=== PATIENT | female | born 1960 | race Caucasian/White ===

== ENCOUNTER → 2018-01-27 | Day surgery (SDC) | payer MEDICARE ==
[2018-01-24 10:50] LABS: BASOPHILS # (AUTO) 0.1 (0.0-0.1); BASOPHILS % 0.9 % (0.0-1.0); EOSINOPHILS # (AUTO) 0.6 (0.0-0.4); EOSINOPHILS % 5.7 % (0.0-6.0); HEMATOCRIT 39.4 % (34.2-44.1); HEMOGLOBIN 12.6 g/dL (12.0-16.0); LYMPHOCYTES # (AUTO) 3.7 (1.0-3.2); LYMPHOCYTES % 33.4 % (18.0-39.1); MEAN CORPUSCULAR VOLUME 84.5 fL (81-99); MONOCYTES # (AUTO) 0.8 (0.2-0.8); MONOCYTES % 7.4 % (4.4-11.3); NEUTROPHILS # (AUTO) 5.8 (2.1-6.9); NEUTROPHILS % 52.2 % (38.7-80.0); PLATELET COUNT 272 x10e3/uL (140-360); RED BLOOD COUNT 4.66 x10e6/uL (3.6-5.1); RED CELL DISTRIBUTION WIDTH 13.5 % (11.7-14.4)
[2018-01-24 11:07] LABS: ANION GAP 16.3 mmol/L (8-16); CALCIUM 9.5 mg/dL (8.4-10.2); CREATININE, SERUM 1.23 mg/dL (0.57-1.11); POTASSIUM 4.3 mmol/L (3.5-5.1)
--- NOTE | 2018-01-24 12:43 | Diagnostic Imaging Report ---
Frontal and lateral views of the chest. HISTORY: PRE ADMIT, skin cancer surgery COMPARISON: None available. DISCUSSION: Lungs: Low lung volumes result in bibasilar vascular crowding, accentuation of the pulmonary interstitial markings, central pulmonary vasculature, and the cardiac silhouette. Allowing for these limitations, the findings are as follows: No evidence of a consolidative pneumonia or pulmonary alveolar edema. Pleura: No pleural effusion or pneumothorax. Heart and mediastinum: The cardiomediastinal silhouette appears unremarkable. Bones: No acute osseous lesion. IMPRESSION: No acute radiographic abnormality, when allowing for the phase of respiration/lung volumes. Signed by: Dr. Dante Henriquez D.O., M.M.M. on 01/24/2018 12:40 PM
[~2018-01-27] MED LIST: ASPIR 8181 MG PO; BUPIVACAINE HCL 0.5% INJ 30 ML VIAL INJ ONE; CLINDAMYCIN 600MG / 50ML 0 ML IV ONE; CLINDAMYCIN 600MG / 50ML 50 ML IV ONE; FENTANYL CITRATE/PF 100MCG/2 ML INJ ONE; HYDRALAZINE HCL 20 MG/ML VIAL ONE; INSULIN 70/30 SC; INSULIN REGULAR, HUMAN 100 UNIT/1 ML 3ML VIAL ONE; LIDOCAINE 1% W/EPINEPHRINE 20 ML VIAL ONE; LIDOCAINE HCL 1% LOCAL INJ 20 ML VIAL ONE; LIPITOR20 MG PO; LISINOPRIL10 MG PO; METFORMIN HCL500 MG PO; METOPROLOL TART50 MG PO; MIDAZOLAM HCL 2 MG/2 ML VIAL ONE; MUPIROCIN 2% OINT 22 GM TUBE ONE; ONDANSETRON HCL INJ 2 MG/ML VIAL ONE; PLAVIX75 MG PO; PROPRANOLOL HCL80 MG PO
--- OUTSIDE RECORDS SUMMARY | 2018-01-27 06:29 | XMS REPORT | Summary of Care ---
Author Author [facility] Organization [facility] Address Unknown Phone Unavailable Encounter HQ Encntr_alias(FIN) [id number] Date(s): 12/05/16 - 12/05/16 [facility] [address] [place] [address]- Discharge Disposition: Home or Self Care Attending Physician: Bassem England MD Referring Physician: Bassem England MD Vital Signs No data available for this section Problem List No data available for this section Allergies, Adverse Reactions, Alerts No data available for this section Medications No data available for this section Results No data available for this section Immunizations No data available for this section Procedures No data available for this section Social History No data available for this section Assessment and Plan No data available for this section
--- OUTSIDE RECORDS SUMMARY | 2018-01-27 06:29 | XMS REPORT | Continuity of Care Document ---
Author Author [place] [facility] Interface Address Unknown Phone Unavailable Problems Problem Status Onset Date Classification Date Reported Comments Source DX: R11.0=NAUSEA Active 10/21/2016 [facility] NAUSEA Active [facility] Medications Medication Details Route Status Patient Instructions Ordering Provider Order Date Source Allergies, Adverse Reactions, Alerts Substance Category Reaction Severity Reaction type Status Date Reported Comments Source Immunizations Immunization Date Given Site Status Last Updated Comments Source Results Order Name Results Value Reference Range Date Interpretation Comments Source Abdomen complete US Abdomen complete US Clinical Indication: - nausea; Comparison: None TECHNIQUE: Grayscale and limited color sonographic evaluation of the abdomen was performed with standard technique. FINDINGS: LIVER: The visualized liver shows normal contour, size, and morphology with normal parenchymal echo texture. BILE DUCTS: The intrahepatic ducts are not dilated. The common bile duct measures 9 mm. The distal common bile duct is not well seen. GALLBLADDER: There are no gallstones, gallbladder sludge, pericholecystic fluid or wall thickening. PANCREAS: The increased is obscured by bowel gas. SPLEEN: The spleen is unremarkable and measures 11.1 cm. KIDNEY: The right kidney measures 9.4 x 6.2 x 6.5 cm. The left kidney measures 12.4 x 6.8 x 6 cm. There is normal renal contour and morphology, with normal parenchymal echotexture. There is no hydronephrosis. AORTA AND INFERIOR VENA CAVA: Visualized portions appear unremarkable. ASCITES: There is no right abdominal ascites. IMPRESSION: 1. Common bile duct is dilated up to 9 mm proximally. The distal common bile duct is not well seen. If there is clinical concern for biliary obstruction, further evaluation with MRCP may be performed. 2. No sonographic evidence of cholelithiasis or cholecystitis. SL: [id number] 12/05/2016 - - Read by: Thao Danielle MD Dictated Date/time: 12/05/16 11:01 Electronically Signed by: Thao Danielle MD 12/05/16 11:03 FINAL REPORT [facility] Vital Signs Vital Sign Value Date Comments Source Encounters Location Location Details Encounter Type Encounter Number Reason For Visit Attending Provider ADM Date DC Date Status Source [facility] Outpatient [id number] Bassem England 12/05/2016 12/06/2016 [facility] Procedures Procedure Code Date Perfomer Comments Source
--- OUTSIDE RECORDS SUMMARY | 2018-01-27 06:29 | XMS REPORT | Clinical Summary ---
Author Author [facility] Organization [facility] Address Unknown Phone Unavailable Care Team Providers Care Icing Maker Name Role Phone Marsha Lopez MD PCP Unavailable Allergies Comments Active Allergy Reactions Severity Noted Date Hydromorphone 08/23/2017 Morphine 08/23/2017 Penicillins 08/23/2017 Hydrocodone-Acetaminophen 08/23/2017 Medications End Date Status Medication Sig Dispensed Refills Start Date 09/22/2017 acetaminophen (TYLENOL Take 2 100 tablet 0 EXTRA STRENGTH) 500 MG tablets 8 tablet (1,000 mg total) by mouth every 6 (six) hours as needed for mild pain or moderate pain for up to 30 days. 09/22/2017 cyclobenzaprine Take 1 tablet 20 tablet 0 (FLEXERIL) 10 mg tablet (10 mg total) 8 by mouth 2 (two) times a day as needed for muscle spasms for up to 30 days. 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 Last Filed Vital Signs Time Taken Vital Sign Reading 08/23/2017 3:31 PM CDT Blood Pressure 131/76 08/23/2017 3:31 PM CDT Pulse 81 08/23/2017 3:31 PM CDT Temperature 36 C (96.8 F) 08/23/2017 3:31 PM CDT Respiratory Rate 16 08/23/2017 3:31 PM CDT Oxygen Saturation 98% - Inhaled Oxygen - Concentration 08/23/2017 1:16 PM CDT Weight 136 kg (300 lb) 08/23/2017 1:16 PM CDT Height 165.1 cm (5' 5") 08/23/2017 1:16 PM CDT Body Mass Index 49.92 Plan of Treatment Health Maintenance Due Date Last Done Comments DIABETIC RETINAL EYE EXAM 1960 DIABETIC FOOT EXAM 1972 URINE MICROALBUMIN 1972 CERVICAL CANCER SCREENING 11/25/1983 BREAST CANCER SCREENING 2012 COLON CANCER SCREENING 2012 SHINGLES VACCINES (1 of 2012 2) INFLUENZA VACCINE 09/08/2017 Procedures Comments Procedure Name Priority Date/Time Associated Diagnosis XR ELBOW 3+ VW LEFT STAT 08/23/2017 2:53 PM CDT XR WRIST 3+ VW LEFT STAT 08/23/2017 2:52 PM CDT XR SHOULDER 2+ VW LEFT STAT 08/23/2017 2:52 PM CDT after 01/26/2017 Results * XR Elbow 3+ Vw Left (08/23/2017 2:53 PM CDT) Narrative Performed At EXAMINATION:XR ELBOW 3VW LEFT [facility] CLINICAL HISTORY:Elbow paininitial exam COMPARISON:None. IMPRESSION: No osseous abnormality is noted. There is no significant elbow joint effusion. [id number] Procedure Note Hm Interface, Radiology Results Incoming - 08/23/2017 3:02 PM CDT EXAMINATION: XR ELBOW 3 VW LEFT CLINICAL HISTORY: Elbow pain initial exam COMPARISON: None. IMPRESSION: No osseous abnormality is noted. There is no significant elbow joint effusion. [id number] Performing Organization Address City/State/Zipcode Phone Number [facility] [address] [place] [address] * XR Wrist 3+ Vw Left (08/23/2017 2:52 PM CDT) Narrative Performed At EXAMINATION:XR WRIST 3VW LEFT [facility] CLINICAL HISTORY:Wrist paininitial exam COMPARISON:None. IMPRESSION: No acute abnormality is noted. There are some degenerative changes in the first carpal-metacarpal joint. [id number] Procedure Note Interface, Radiology Results Incoming - 08/23/2017 3:02 PM CDT EXAMINATION: XR WRIST 3 VW LEFT CLINICAL HISTORY: Wrist pain initial exam COMPARISON: None. IMPRESSION: No acute abnormality is noted. There are some degenerative changes in the first carpal-metacarpal joint. [id number] Performing Organization Address City/State/Zipcode Phone Number [facility] [address] [place] [address] * XR Shoulder 2+ Vw Left (08/23/2017 2:52 PM CDT) Narrative Performed At PROCEDURE:XR SHOULDER 2VW LEFT [facility] CLINICAL HISTORY:paindenies injury COMPARISON:None. TECHNIQUE: 3 views of the LEFT shoulder were performed consisting of the external rotation, internal rotation, and scapular Y view. FINDINGS: No fracture, dislocation, bone destruction, or periosteal reaction is seen of the bones about the shoulder. The coracoclavicular ligaments are intact. No gross abnormalityglenohumeral joint is seen grossly. Large and heterogeneous calcifications projecting over the greater trochanter consistent with calcific tendinosis of rotator cuff. IMPRESSION: 1. Large and heterogeneous calcifications projecting over the greater trochanter consistent with calcific tendinosis of rotator cuff, findings likely explain the patient's symptoms. 2. Osteoarthritis of the acromio-clavicular joint. 3. Negative for fracture or dislocation to left shoulder. [id number] . Procedure Note Interface, Radiology Results Incoming - 08/23/2017 3:01 PM CDT PROCEDURE: XR SHOULDER 2 VW LEFT CLINICAL HISTORY: pain denies injury COMPARISON: None. TECHNIQUE: 3 views of the LEFT shoulder were performed consisting of the external rotation, internal rotation, and scapular Y view. FINDINGS: No fracture, dislocation, bone destruction, or periosteal reaction is seen of the bones about the shoulder. The coracoclavicular ligaments are intact. No gross abnormality glenohumeral joint is seen grossly. Large and heterogeneous calcifications projecting over the greater trochanter consistent with calcific tendinosis of rotator cuff. IMPRESSION: 1. Large and heterogeneous calcifications projecting over the greater trochanter consistent with calcific tendinosis of rotator cuff, findings likely explain the patient's symptoms. 2. Osteoarthritis of the acromio-clavicular joint. 3. Negative for fracture or dislocation to left shoulder. [id number] . Performing Organization Address City/State/Zipcode Phone Number [facility] [address] [place] [address] after 01/26/2017 Insurance Payer Benefit Subscriber ID Type Phone Address Plan / Group AETNA MEDICARE AETNA xxxxxxxx HMO MEDICARE HMO/PPO [facility] Advance Directives Patient has advance care planning documents on file. For more information, lito wheatley contact: Mikey Rose [address] [place] [address]
--- OUTSIDE RECORDS SUMMARY | 2018-01-27 06:29 | XMS REPORT ---
Author [facility] Address Unknown Phone Unavailable Care Team Providers Care Assistant Boiler Operator Name Role Phone TOBIAS TOVAR Unavailable Unavailable Problems This patient has no known problems. Allergies, Adverse Reactions, Alerts This patient has no known allergies or adverse reactions. Medications This patient has no known medications. Encounters Start Date/Time End Date/Time Encounter Type Admission Type Attending Clinicians Care Facility Care Department Encounter ID 2016-02-18 16:43:54 2016-02-18 16:43:54 Outpatient [facility] [id number] 2016-02-18 15:23:58 2016-02-18 15:23:58 Outpatient [facility] [id number] Results Test Description Test Time Test Comments Text Results Atomic Results Result Comments CHEST 2 VIEWS 2018-01-24 12:37:00 [place] [id number] Patient Name: EDUARDO STUBBS MR #: [id number] : 1960 Age/Sex: 57/F Req #: [id number] Adm Physician: Ordered by: TOBIAS TOVAR MD Report #: [id number] Location: OR Room/Bed: Procedure: [id number] DX/CHEST 2 VIEWS Exam Date: 01/24/18 Exam Time: 1120 REPORT STATUS: Signed Frontal and lateral views of the chest. HISTORY: PRE ADMIT, skin cancer surgery COMPARISON: None available. DISCUSSION: Lungs: Low lung volumes result in bibasilar vascular crowding, accentuation of the pulmonary interstitial markings, central pulmonary vasculature, and the cardiac silhouette. Allowing for these limitations, the findings are as follows: No evidence of a consolidative pneumonia or pulmonary alveolar edema. Pleura: No pleural effusion or pneumothorax. Heart and mediastinum: The cardiomediastinal silhouette appears unremarkable. Bones: No acute osseous lesion. IMPRE SSION: No acute radiographic abnormality, when allowing for the phase of respiration/lung volumes. Signed by: Dr. Lacho Henriquez D.O., M.M.M. on 01/24/2018 12:40 PM Dictated By: LACHO HENRIQUEZ DO 1240 Transcribed By: ERIK on 01/24/18 1240 COPY TO: TOBIAS TOVAR MD
--- OUTSIDE RECORDS SUMMARY | 2018-01-27 06:30 | XMS REPORT ---
Author Author Admin, [place] Organization [facility] Address [address] [place] [address] Phone Allergies, Adverse Reactions, Alerts Allergy Name Reaction Description Start Date Severity Status Provider DILANTIN Critical Active Bernice Henry MD PENICILLIN Moderate Active Tiffany Perarnau De Loukanis COSTUME DESIGN TEACHER RADIATION THERAPY TECHNICIAN MORPHINE Moderate Active Tiffany Perarnau De Loukanis COSTUME DESIGN TEACHER RADIATION THERAPY TECHNICIAN VICODIN Moderate Active Tiffany Perarnau De [place]is COSTUME DESIGN TEACHER RADIATION THERAPY TECHNICIAN CAT AND DOG HAIR Moderate Active Tiffany Perarnau De Loukanis COSTUME DESIGN TEACHER RADIATION THERAPY TECHNICIAN CIGARETTE SMOKE Moderate Active Tiffany Perarnau De Loukanis COSTUME DESIGN TEACHER RADIATION THERAPY TECHNICIAN Conditions or Problems Problem Name Problem Code Onset Date Status Entry Date Provider Comment Standard Description Annotate Screening mammogram V76.12 Active Marsha Lopez MD Other screening mammogram Vaccine against disease V05.9 Active Marsha Lopez MD Need for prophylactic vaccination and inoculation against unspecified single disease Basal cell carcinoma, face 173.31 Active Marsha Lopez MD Basal cell carcinoma of skin of other and unspecified parts of face Cervical radiculopathy, left 723.4 Active Marsha Lopez MD Brachial neuritis or radiculitis NOS Nausea, chronic 787.02 Active Marsha Lopez MD Nausea alone Shoulder pain, left 719.41 Active Marsha Lopez MD Pain in joint involving shoulder region BMI 50.0-59.9 Active Marsha Lopez MD Body Mass Index 50.0-59.9, adult Status post PTCA and/or stent V45.82 Active Marsha Lopez MD Percutaneous transluminal coronary angioplasty, postsurgical status Tremor 781.0 Active Marsha Lopez MD Abnormal involuntary movements Chronic kidney disease stage 3 585.3 Active Marsha Lopez MD Chronic kidney disease, Stage III (moderate) has been followed in [facility] Cervical polyp 622.7 Active Marsha Lopez MD Mucous polyp of cervix Menopausal hot flashes 627.2 Active Marsha Lopez MD Symptomatic menopausal or female climacteric states Plus vaginal dryness, irritability BIPOLAR AND RELATED DISORDER, OTHER SPECIFIED Active Joesph Reyes MD Bipolar I disorder, most recent episode (or current) manic, unspecified Congestive heart failure 428.0 Active Marsha Lopez MD Congestive heart failure, unspecified Fecal incontinence 787.60 Active Marsha Lopez MD Full incontinence of feces Pain in joint, multiple sites 719.49 Active Marsha Lopez MD Pain in joint involving multiple sites Urinary incontinence, mixed 788.33 Active Marsha Lopez MD Mixed incontinence (female) (male) Astigmatism 367.20 Active Shade Valencia OD Astigmatism, unspecified MYOPIA 367.1 Active Shade Valencia OD Myopia PRESBYOPIA 367.4 Active Shade Valencia OD Presbyopia DIABETES MELLITUS, UNCONTROLLED, WITH RENAL COMPLICATIONS 250.42 Active Marsha Lopez MD Diabetes mellitus with renal manifestations, type II or unspecified type, uncontrolled DIABETIC RETINOPATHY, BACKGROUND, MILD 362.01 Active Marsha Lopez MD Background diabetic retinopathy MICROALBUMINURIA 791.0 Active Marsha Lopez MD Proteinuria DIABETES MELLITUS, TYPE II, UNCONTROLLED, W/OPHTHALMIC COMPS 250.52 Active Marsha Lopez MD Diabetes mellitus with ophthalmic manifestations, type II or unspecified type, uncontrolled ASHD-benton vessel 414.01 Active Marsha Lopez MD Coronary atherosclerosis of benton coronary artery s/p stent of LAD in 09/2013 RECTAL BLEEDING 569.3 Active Marsha Lopez MD Hemorrhage of rectum and anus s/p colon polyp INTERTRIGO, CANDIDAL 695.89 Active Marsha Lopez MD Other specified erythematous conditions BASAL CELL CARCINOMA OF SCALP AND SKIN OF NECK 173.41 Active Marsha Lopez MD Basal cell carcinoma of scalp and skin of neck GASTROPARESIS 536.3 Active Marsha Lopez MD Gastroparesis POLYNEUROPATHY IN DIABETES 357.2 Active Marsha Lopez MD Polyneuropathy in diabetes Gastroparesis, neurogenic bladder, stocking-glove peripheral neuropathy DIABETES MELLITUS, WITH NEUROLOGICAL COMPLICATIONS 250.60 Active Marsha Lopez MD Diabetes mellitus with neurological manifestations, type II or unspecified type, not stated as uncontrolled HYPERTENSION 401.9 Active Marsha Lopez MD Unspecified essential hypertension MORBID OBESITY 278.01 Active Marsha Lopez MD Morbid obesity MYOCARDIAL INFARCTION, HX OF 412 Active Marsha Lopez MD Old myocardial infarction MOOD DISORDER NOS 296.90 Active Marsha Lopez MD Unspecified episodic mood disorder 05/25 GAD7=12 (mod) OBESITY 278.00 Active Joesph Reyes MD Obesity, unspecified ADJUSTMENT DISORDER, W/ ANXIETY 309.24 Active [facility] Adjustment disorder with anxiety DEPRESSIVE DISORDER, MAJOR, RECURRENT, MODERATE 296.32 Active Marsha Lopez MD Major depressive disorder, recurrent episode, moderate degree 05/25 PHQ9=7 Post traumatic stress disorder 309.81 Active Tiffany Perarnau De Loukanis COSTUME DESIGN TEACHER RADIATION THERAPY TECHNICIAN Posttraumatic stress disorder DIABETES MELLITUS 250.00 Correction Michael Dominguez MD Diabetes mellitus without mention of complication, type II or unspecified type, not stated as uncontrolled BASAL CELL CARCINOMA, HX OF V10.83 Correction Mark Campos MD Personal history of other malignant neoplasm of skin DIABETES MELLITUS 250.00 Correction Marsha Lopez MD Diabetes mellitus without mention of complication, type II or unspecified type, not stated as uncontrolled Dysuria ICD-788.1 Inactive Marsha Lopez MD [employer] well woman exam ICD-V72.31 Inactive Marsha Lopez MD Vaccine against disease ICD-V05.9 Inactive Marsha Lopez MD RUQ PAIN ICD-789.01 Inactive Marsha Lopez MD ABDOMINAL PAIN ICD-789.00 Inactive Marsha Lopez MD URINARY TRACT INFECTION ICD-599.0 Inactive Marsha Lopez MD SOMATIC DYSFUNCTION, LOWER EXTREMITY ICD-739.6 Inactive Marsha Lopez MD SOMATIC DYSFUNCTION, SPINE, CERVICAL ICD-739.1 Inactive Marsha Lopez MD SOMATIC DYSFUNCTION, SPINE, SACRAL ICD-739.4 Inactive Marsha Lopez MD SOMATIC DYSFUNCTION, SPINE, THORACIC ICD-739.2 Inactive Marsha Lopez MD CORONARY ARTERY DISEASE 414.00 Inactive Marsha Lopez MD Coronary atherosclerosis of unspecified type of vessel, benton or graft s/p stent of LAD in 09/2013 UNSPECIFIED BACKACHE ICD-724.5 Inactive Marsha Lopez MD CHEST PAIN ICD-786.50 Inactive Marsha Lopez MD LOW BACK PAIN ICD-724.2 Inactive Marsha Lopez MD NEOPLASM, SKIN, UNCERTAIN BEHAVIOR ICD-238.2 Inactive Marsha Lopez MD PERSONAL HISTORY OTHER DISORDER URINARY SYSTEM ICD-V13.09 Inactive Marsha Lopez MD POST-TRAUMATIC STRESS DISORDER 309.81 Inactive Tiffany Grigsby [facility] RADIATION THERAPY TECHNICIAN Posttraumatic stress disorder Dysuria 788.1 Resolved Marsha Lopez MD Dysuria [employer]el [employer]ocom[employer] well woman exam V72.31 Resolved Marsha Lopez MD Routine gynecological examination Vaccine against disease V05.9 Resolved Marsha Lopez MD Need for prophylactic vaccination and inoculation against unspecified single disease RUQ PAIN 789.01 Resolved Marsha Lopez MD Abdominal pain, right upper quadrant ABDOMINAL PAIN 789.00 Resolved Marsha Lopez MD Abdominal pain, unspecified site URINARY TRACT INFECTION 599.0 Resolved Marsha Lopez MD Urinary tract infection, site not specified Recurrent SOMATIC DYSFUNCTION, LOWER EXTREMITY 739.6 Resolved Marsha Lopez MD Nonallopathic lesions of lower extremities, not elsewhere classified SOMATIC DYSFUNCTION, SPINE, CERVICAL 739.1 Resolved Marsha Lopez MD Nonallopathic lesions of cervical region, not elsewhere classified SOMATIC DYSFUNCTION, SPINE, SACRAL 739.4 Resolved Marsha Lopez MD Nonallopathic lesions of sacral region, not elsewhere classified SOMATIC DYSFUNCTION, SPINE, THORACIC 739.2 Resolved Marsha Lopez MD Nonallopathic lesions of thoracic region, not elsewhere classified UNSPECIFIED BACKACHE 724.5 Resolved Marsha Lopez MD Backache, unspecified pain of left upper back, with tenderness to palpation of the soft tissue above her left scapula CHEST PAIN 786.50 Resolved Marsha Lopez MD Unspecified chest pain LOW BACK PAIN 724.2 Resolved Marsha Lopez MD Lumbago Increased pain with sitting for a prolonged period NEOPLASM, SKIN, UNCERTAIN BEHAVIOR 238.2 Resolved Marsha Lopez MD Neoplasm of uncertain behavior of skin Large non-healing area on left forehead x 9 PERSONAL HISTORY OTHER DISORDER URINARY SYSTEM V13.09 Resolved Marsha Lopez MD Other personal history of disorders of urinary system Recurring urine infections, cloudy urine Medication List Medication Instructions Start Date Stop Date Generic Name NDC Status Provider Patient Instruction FLUCONAZOLE 150 MG ORAL TABLET One By Mouth once a week for 3 doses FLUCONAZOLE 93342914582 Active Marsha Lopez MD Active HYDROCHLOROTHIAZIDE 25 MG ORAL TABLET 1 by mouth every morning for heart and for leg swelling HYDROCHLOROTHIAZIDE 00738771930 Active Marsha Lopez MD Active CYCLOBENZAPRINE HCL 10 MG ORAL TABLET One By Mouth Twice a Day As Needed for pain & spasm CYCLOBENZAPRINE HCL 42644358280 Active Marsha Lopez MD Active GABAPENTIN 300 MG ORAL CAPSULE Take one by mouth three times a day for nerve pain GABAPENTIN 16128887614 Active Marsha Lopez MD Active ONDANSETRON 8 MG ORAL TABLET DISINTEGRATING Take one By Mouth Every 8 hours As Needed for nausea ONDANSETRON 88944088609 Active Marsha Lopez MD Active PROPRANOLOL HCL 80 MG ORAL TABLET One By Mouth every 8 hours for tremor PROPRANOLOL HCL 47172420194 Active Marsha Lopez MD Active BLOOD GLUCOSE MONITOR SYSTEM w/Device KIT Dispense one kit for use in checking fasting blood sugar and 2 hour postprandial bloodsugar three times per day BLOOD GLUCOSE MONITORING SUPPL 65803892246 Active Marsha Lopez MD Active BLOOD GLUCOSE TEST IN VITRO STRIP Dispense for use in checking fasting blood sugar and 2 hour postprandial BG after each meal. Total 4 times daily. GLUCOSE BLOOD 54954010819 Active Heena Craft Active LANCETS Dispense for use in checking fasting blood sugar and 2 hour postprandial BG after each meal. Total 4 times daily. LANCETS 54217056668 Active Heena Craft Active CLOTRIMAZOLE 1 % EXTERNAL CREAM apply Twice a Day to affected areas until rash has been gone for 48 hours CLOTRIMAZOLE 14576618175 Active Marsha Lopez MD Active JANUVIA 50 MG ORAL TABLET 1 By Mouth daily for diabetes SITAGLIPTIN PHOSPHATE 00884024275 Active Bernice Henry MD Active LIPITOR 80 MG ORAL TABLET 1 by mouth every night for cholesterol ATORVASTATIN CALCIUM 39468949141 Active Marsha Lopez MD Active CLOPIDOGREL BISULFATE 75 MG ORAL TABLET 1 By Mouth once a day to prevent heart attack CLOPIDOGREL BISULFATE 15120128481 Active Marsha Lopez MD Active NOVOLIN 70/30 (70-30) 100 UNIT/ML SUBCUTANEOUS SUSPENSION Take 60 units in the morning and 60 units at night for diabetes INSULIN NPH ISOPHANE & REGULAR 37840634987 Active Bernice Henry MD Active INSULIN SYRINGE 31G X 5/16" 0.5 ML Use with insulin Injections Twice daily INSULIN SYRINGE-NEEDLE U-100 27861987346 Active Heena Craft Active METFORMIN HCL 1000 MG ORAL TABLET Take one tablet By Mouth Twice a Day for diabetes METFORMIN HCL 68632959021 Active Bernice Henry MD Active LISINOPRIL 40 MG ORAL TABLET Take two by mouth every day for blood pressure LISINOPRIL 90357877188 Active Marsha Lopez MD Active ASPIRIN 81 MG ORAL TABLET DELAYED RELEASE Two tablets By Mouth Twice a Day ASPIRIN 19703898456 Active Marsha Lopez MD Active NITROSTAT 0.4 MG SUBLINGUAL TABLET SUBLINGUAL Take one below the tongue Every 5 minutes As Needed for chest pain NITROGLYCERIN 13284431180 Active Marsha Lopez MD Active METOCLOPRAMIDE HCL 10 MG ORAL TABLET One By Mouth before meals and at bedtime for poor gut motility & nausea METOCLOPRAMIDE HCL 36234543056 Active Marsha Lopez MD Active METOPROLOL TARTRATE 100 MG ORAL TABLET Take one By Mouth Twice a Day for heart and blood pressure METOPROLOL TARTRATE 96595047915 Active Marsha Lopez MD Active SULFAMETHOXAZOLE-TRIMETHOPRIM 800-160 MG ORAL TABLET One By Mouth Twice a Day for 7 days SULFAMETHOXAZOLE-TRIMETHOPRIM 800-160 MG ORAL TABLET 385487 SULFAMETHOXAZOLE-TRIMETHOPRIM Inactive CARBIDOPA-LEVODOPA 25-100 MG ORAL TABLET One By Mouth Three Times a Day for Resting Tremor CARBIDOPA-LEVODOPA 25-100 MG ORAL TABLET 055276 CARBIDOPA-LEVODOPA Inactive PRIMIDONE 50 MG ORAL TABLET One By Mouth Three Times a Day for tremor PRIMIDONE 50 MG ORAL TABLET 541586 PRIMIDONE Inactive LATUDA 40 MG ORAL TABLET Take 2 tabs By Mouth at bedtime LATUDA 40 MG ORAL TABLET LURASIDONE HCL Inactive LAMISIL 250 MG ORAL TABLET 1 by mouth every day for 3 months for nail fungus LAMISIL 250 MG ORAL TABLET 014844 TERBINAFINE HCL Inactive TRAZODONE HCL 100 MG ORAL TABLET Take 1 - 2 tabs By Mouth take at bedtime TRAZODONE HCL 100 MG ORAL TABLET 312439 TRAZODONE HCL Inactive TRILEPTAL 300 MG ORAL TABLET Take 1 tab By Mouth Every Morning and 1 By Mouth take at bedtime TRILEPTAL 300 MG ORAL TABLET 888393 OXCARBAZEPINE Inactive BACTRIM DS 800-160 MG ORAL TABLET 1 tab by mouth twice a day for 7 days for UTI BACTRIM DS 800-160 MG ORAL TABLET 942686 TRIMETHOPRIM-SULFAMETHOXAZOLE Inactive LAMICTAL 50 MG Take 1/2 tab for 3 days, then 1 tab for 3 days,and then 1 1/2 tab for 3 days LAMICTAL 50 MG Inactive LOVASTATIN 40 MG ORAL TABLET 2 by mouth every night LOVASTATIN 40 MG ORAL TABLET 234929 LOVASTATIN Inactive LAMICTAL 100 MG ORAL TABLET Take 1 tab By Mouth Twice a Day LAMICTAL 100 MG ORAL TABLET 564473 LAMOTRIGINE Inactive CLOTRIMAZOLE 1 % EXTERNAL CREAM apply to all red skin Twice a Day CLOTRIMAZOLE 1 % EXTERNAL CREAM 484771 CLOTRIMAZOLE Inactive LAMICTAL 100 MG ORAL TABLET Take 1 tab By Mouth Every Morning LAMICTAL 100 MG ORAL TABLET 423808 LAMOTRIGINE Inactive AMLODIPINE BESYLATE 10 MG ORAL TABLET One By Mouth daily for blood pressure AMLODIPINE BESYLATE 10 MG ORAL TABLET 750066 AMLODIPINE BESYLATE Inactive BD PEN NEEDLE SHORT U/F 31G X 8 MM Use daily to inject lantus insulin (by pen) BD PEN NEEDLE SHORT U/F 31G X 8 MM INSULIN PEN NEEDLE Inactive LANTUS SOLOSTAR 100 UNIT/ML SUBCUTANEOUS SOLUTION PEN-INJECTOR Use daily to inject 20 units of insulin every evening LANTUS SOLOSTAR 100 UNIT/ML SUBCUTANEOUS SOLUTION PEN-INJECTOR INSULIN GLARGINE Inactive PROMETHAZINE HCL 25 MG ORAL TABLET 1 by mouth every 6 hours as needed for nausea or vomiting PROMETHAZINE HCL 25 MG ORAL TABLET 687360 PROMETHAZINE HCL Inactive FLUCONAZOLE 150 MG ORAL TABLET One By Mouth daily for one week for severe yeast infection FLUCONAZOLE 150 MG ORAL TABLET 022099 FLUCONAZOLE Inactive TRAZODONE HCL 100 MG ORAL TABLET Take 1 tab By Mouth take at bedtime TRAZODONE HCL 100 MG ORAL TABLET 862431 TRAZODONE HCL Inactive GLIPIZIDE 10 MG ORAL TABLET take 1 tab po bid GLIPIZIDE 10 MG ORAL TABLET 044061 GLIPIZIDE Inactive HYDROCHLOROTHIAZIDE 25 MG ORAL TABLET Take one tablet By Mouth once daily HYDROCHLOROTHIAZIDE 25 MG ORAL TABLET 417768 HYDROCHLOROTHIAZIDE Inactive LIPITOR 20 MG ORAL TABLET 2 by mouth every pm LIPITOR 20 MG ORAL TABLET 925190 ATORVASTATIN CALCIUM Inactive LOPRESSOR 100 MG ORAL TABLET take 1 tab By Mouth tid LOPRESSOR 100 MG ORAL TABLET 864973 METOPROLOL TARTRATE Inactive METFORMIN HCL 850 MG ORAL TABLET 1 by mouth three a day METFORMIN HCL 850 MG ORAL TABLET 438918 METFORMIN HCL Inactive LAMICTAL 25 MG ORAL TABLET Take 3 tabs By Mouth Every Morning for 2 weeks, then 4 tabs By Mouth take at bedtime LAMICTAL 25 MG ORAL TABLET 068359 LAMOTRIGINE Inactive TRAZODONE HCL 50 MG ORAL TABLET Take 1 tab By Mouth take at bedtime TRAZODONE HCL 50 MG ORAL TABLET 506526 TRAZODONE HCL Inactive LAMICTAL 25 MG ORAL TABLET Take 1 tab By Mouth Every Morning for 2 weeks, then take 2 tabs By Mouth Every Morning LAMICTAL 25 MG ORAL TABLET 320360 LAMOTRIGINE Inactive INSULIN SYRINGE 28G X 1/2" 0.5 ML INSULIN SYRINGE 28G X 1/2" 0.5 ML INSULIN SYRINGE-NEEDLE U-100 Inactive SULFAMETHOXAZOLE-TRIMETHOPRIM 800-160 MG ORAL TABLET One By Mouth Twice a Day for 7 days SULFAMETHOXAZOLE-TRIMETHOPRIM 55501224287 No Longer Active Masrha Lopez MD Active CARBIDOPA-LEVODOPA 25-100 MG ORAL TABLET One By Mouth Three Times a Day for Resting Tremor CARBIDOPA-LEVODOPA 10025337114 No Longer Active Marsha Lopez MD Active PRIMIDONE 50 MG ORAL TABLET One By Mouth Three Times a Day for tremor PRIMIDONE 69044318203 No Longer Active Marsha Lopez MD Active LATUDA 40 MG ORAL TABLET Take 2 tabs By Mouth at bedtime LURASIDONE HCL 12896580988 No Longer Active Marsha Lopez MD Active LAMISIL 250 MG ORAL TABLET 1 by mouth every day for 3 months for nail fungus TERBINAFINE HCL 24459800835 No Longer Active Marsha Lopez MD Active TRAZODONE HCL 100 MG ORAL TABLET Take 1 - 2 tabs By Mouth take at bedtime TRAZODONE HCL 32690247926 No Longer Active Marsha Lopez MD Active TRILEPTAL 300 MG ORAL TABLET Take 1 tab By Mouth Every Morning and 1 By Mouth take at bedtime OXCARBAZEPINE 83614168135 No Longer Active Marsha Lopez MD Active BACTRIM DS 800-160 MG ORAL TABLET 1 tab by mouth twice a day for 7 days for UTI TRIMETHOPRIM-SULFAMETHOXAZOLE 57381148114 No Longer Active Marsha Lopez MD Active LAMICTAL 50 MG Take 1/2 tab for 3 days, then 1 tab for 3 days,and then 1 1/2 tab for 3 days LAMICTAL 50 MG No Longer Active Joesph Reyes MD Active LOVASTATIN 40 MG ORAL TABLET 2 by mouth every night LOVASTATIN 04222835091 No Longer Active Marsha Lopez MD Active LAMICTAL 100 MG ORAL TABLET Take 1 tab By Mouth Twice a Day LAMOTRIGINE 20303100724 No Longer Active Marsha Lopez MD Active CLOTRIMAZOLE 1 % EXTERNAL CREAM apply to all red skin Twice a Day CLOTRIMAZOLE 44296476417 No Longer Active Marsha Lopez MD Active LAMICTAL 100 MG ORAL TABLET Take 1 tab By Mouth Every Morning LAMOTRIGINE 57602755667 No Longer Active Marsha Lopez MD Active AMLODIPINE BESYLATE 10 MG ORAL TABLET One By Mouth daily for blood pressure AMLODIPINE BESYLATE 87467968694 No Longer Active Jackie Queen D.O. Active BD PEN NEEDLE SHORT U/F 31G X 8 MM Use daily to inject lantus insulin (by pen) INSULIN PEN NEEDLE 25369636766 No Longer Active Marsha Lopez MD Active LANTUS SOLOSTAR 100 UNIT/ML SUBCUTANEOUS SOLUTION PEN-INJECTOR Use daily to inject 20 units of insulin every evening INSULIN GLARGINE 55705443394 No Longer Active Mouna Burdick MD Active PROMETHAZINE HCL 25 MG ORAL TABLET 1 by mouth every 6 hours as needed for nausea or vomiting PROMETHAZINE HCL 18318379686 No Longer Active Marsha Lopez MD Active FLUCONAZOLE 150 MG ORAL TABLET One By Mouth daily for one week for severe yeast infection FLUCONAZOLE 17238435091 No Longer Active Jackie Queen D.O. Active TRAZODONE HCL 100 MG ORAL TABLET Take 1 tab By Mouth take at bedtime TRAZODONE HCL 01986175974 No Longer Active Marsha Lopez MD Active GLIPIZIDE 10 MG ORAL TABLET take 1 tab po bid GLIPIZIDE 68052091791 No Longer Active Mouna Burdick MD Active HYDROCHLOROTHIAZIDE 25 MG ORAL TABLET Take one tablet By Mouth once daily HYDROCHLOROTHIAZIDE 41298360395 No Longer Active Marsha Lopez MD Active LIPITOR 20 MG ORAL TABLET 2 by mouth every pm ATORVASTATIN CALCIUM 35892882911 No Longer Active Marsha Lopez MD Active LOPRESSOR 100 MG ORAL TABLET take 1 tab By Mouth tid METOPROLOL TARTRATE 62042585794 No Longer Active Marsha Lopez MD Active METFORMIN HCL 850 MG ORAL TABLET 1 by mouth three a day METFORMIN HCL 58408945076 No Longer Active Marsha Lopez MD Active PRAVACHOL 20 MG ORAL TABLET 1 by mouth every pm PRAVASTATIN SODIUM 47457512820 No Longer Active Masrha Lopez MD Active LAMICTAL 25 MG ORAL TABLET Take 3 tabs By Mouth Every Morning for 2 weeks, then 4 tabs By Mouth take at bedtime LAMOTRIGINE 32490696433 No Longer Active Marsha Lopez MD Active TRAZODONE HCL 50 MG ORAL TABLET Take 1 tab By Mouth take at bedtime TRAZODONE HCL 05085949388 No Longer Active Marsha Lopez MD Active LAMICTAL 25 MG ORAL TABLET Take 1 tab By Mouth Every Morning for 2 weeks, then take 2 tabs By Mouth Every Morning LAMOTRIGINE 56484786017 No Longer Active Marsha Lopez MD Active INSULIN SYRINGE 28G X 1/2" 0.5 ML INSULIN SYRINGE-NEEDLE U-100 77040387080 No Longer Active Marsha Lopez MD Active Advance Directives Directive Description Start Date DISCUSSED - HER PARTNER SHMUEL IS WHO SHE WANTS HER MEDICAL POWER OF TERRY CLOTH CUTTER HAND, BUT SHE DOES NOT YET HAVE THIS IN WRITING. Immunizations Vaccine Administration Date Value Standard Description influenza immunization (Flu Vax) has been administered given influenza virus vaccine, unspecified formulation Tetanus toxoid, reduced diphtheria toxoid and acellular Pertussis vaccine, absorbed (TdaP) given given tetanus toxoid, reduced diphtheria toxoid, and acellular pertussis vaccine, adsorbed influenza immunization (Flu Vax) has been administered given influenza virus vaccine, unspecified formulation Vital Signs Date Name Value Unit Range Description blood pressure, diastolic 88 mm[Hg] BP salgado blood pressure, systolic 169 mm[Hg] BP sys height E&M 65 [in_us] Bdy height pulse rate E&M 76 /min Heart rate respiratory rate E&M 17 /min Resp rate temperature E&M 98.4 [degF] Body temperature weight E&M 299.20 [lb_av] Weight Measured blood pressure, diastolic 103 mm[Hg] BP salgado blood pressure, systolic 166 mm[Hg] BP sys height E&M 65 [in_us] Bdy height pulse rate E&M 75 /min Heart rate respiratory rate E&M 17 /min Resp rate temperature E&M 98.3 [degF] Body temperature weight E&M 301.60 [lb_av] Weight Measured blood pressure, diastolic, second observation 84 mm[Hg] BP salgado blood pressure, diastolic 84 mm[Hg] BP salgado blood pressure, systolic, second observation 120 mm[Hg] BP sys blood pressure, systolic 120 mm[Hg] BP sys height E&M 65 [in_us] Bdy height pulse rate E&M 78 /min Heart rate respiratory rate E&M 18 /min Resp rate temperature E&M 98.4 [degF] Body temperature weight E&M 294.20 [lb_av] Weight Measured blood pressure, diastolic, second observation 84 mm[Hg] BP salgado blood pressure, diastolic 84 mm[Hg] BP salgado blood pressure, systolic, second observation 128 mm[Hg] BP sys blood pressure, systolic 128 mm[Hg] BP sys height E&M 65 [in_us] Bdy height pulse rate E&M 95 /min Heart rate pulse rate #2 72 Heart rate respiratory rate E&M 28 /min Resp rate temperature E&M 98.1 [degF] Body temperature weight E&M 298.40 [lb_av] Weight Measured blood pressure, diastolic, second observation 86 mm[Hg] BP salgado blood pressure, diastolic 86 mm[Hg] BP salgado blood pressure, systolic, second observation 139 mm[Hg] BP sys blood pressure, systolic 139 mm[Hg] BP sys height E&M 65 [in_us] Bdy height pulse rate E&M 76 /min Heart rate respiratory rate E&M 16 /min Resp rate temperature E&M 97.9 [degF] Body temperature weight E&M 305.40 [lb_av] Weight Measured blood pressure, diastolic 92 mm[Hg] BP salgado blood pressure, systolic 158 mm[Hg] BP sys height E&M 65 [in_us] Bdy height pulse rate E&M 84 /min Heart rate temperature E&M 97.8 [degF] Body temperature weight E&M 304.25 [lb_av] Weight Measured blood pressure, diastolic 60 mm[Hg] BP salgado blood pressure, systolic 115 mm[Hg] BP sys height E&M 65 [in_us] Bdy height pulse rate E&M 86 /min Heart rate temperature E&M 97.8 [degF] Body temperature weight E&M 315 [lb_av] Weight Measured blood pressure, diastolic 93 mm[Hg] BP salgado blood pressure, systolic 158 mm[Hg] BP sys height E&M 65 [in_us] Bdy height pulse rate E&M 77 /min Heart rate respiratory rate E&M 18 /min Resp rate temperature E&M 97.8 [degF] Body temperature weight E&M 308.20 [lb_av] Weight Measured Diagnostic Results Date Name Value Unit Range Description Lab Report: CBC With Differential/Platelet, Comp. Metabolic Panel (14), ... - Urinalysis mucus on urinalysis Present Not Estab. Lab Report: CBC With Differential/Platelet, Comp. Metabolic Panel (14), ... - Chemistry thyroid stimulating hormone, serum 0.783 u[iU]/mL 0.450-4.500 Lab Report: CBC With Differential/Platelet, Comp. Metabolic Panel (14), ... - Urinalysis WBC urine on microscopy 6-10 /hpf {Cells}/[HPF] 0 - 5 Lab Report: CBC With Differential/Platelet, Comp. Metabolic Panel (14), ... - Chemistry very low density lipoproteins 32 mg/dL 5-40 Lab Report: CBC With Differential/Platelet, Comp. Metabolic Panel (14), ... - Urinalysis epithelial cells, urine 0-10 /[LPF] 0 - 10 Lab Report: CBC With Differential/Platelet, Comp. Metabolic Panel (14), ... - Chemistry chloride, serum 97 mmol/L 96-106 urea nitrogen, blood 22 mg/dL 6-24 Office Visit: Annual Planning Female RM#5-gema - Urinalysis leukocyte esterase, urine, by dipstick trace Lab Report: CBC With Differential/Platelet, Comp. Metabolic Panel (14), ... - Hematology mean corpuscular hemoglobin concentration, RBC 31.8 G/DL % 31.5-35.7 erythrocyte (RBC) count 5.12 X10E6/UL 10*6/mm3 3.77-5.28 Office Visit: Annual Planning Female RM#5-gabler - Urinalysis nitrite, urine, semiquantitative negative urine color yellow Lab Report: CBC With Differential/Platelet, Comp. Metabolic Panel (14), ... - Chemistry Absolute Neutrophils 6.7 X10E3/UL 10*3/uL 1.4-7.0 Office Visit: Annual Planning Female RM#5-alejandroler - Urinalysis bilirubin, urine negative Lab Report: CBC With Differential/Platelet, Comp. Metabolic Panel (14), ... - Chemistry LDL cholesterol, serum 28 mg/dL 0-99 urea nitrogen/creatinine ratio, serum 15 9-23 Lab Report: CBC With Differential/Platelet, Comp. Metabolic Panel (14), ... 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 Metabolic Panel (14), ... - Chemistry HDL cholesterol, serum 46 mg/dL >39 Lab Report: CBC With Differential/Platelet, Comp. Metabolic Panel (14), ... - Hematology monocytes as percent of blood leukocytes 7 % Not Estab. Lab Report: CBC With Differential/Platelet, Comp. Metabolic Panel (14), ... - Chemistry albumin/globulin ratio, serum 1.7 1.2-2.2 creatinine, serum 1.42 mg/dL 0.57-1.00 cholesterol, serum 106 mg/dL 736-650 4301/10/15 creatinine, random, urine 244.3 mg/dL Not Estab. bilirubin, serum, total 0.4 mg/dL 0.0-1.2 Lab Report: CBC With Differential/Platelet, Comp. Metabolic Panel (14), ... - Hematology Eosinophil Absolute Count 0.3 X10E3/UL 10*3/uL 0.0-0.4 Office Visit: Annual Planning Female RM#5-gabler - Urinalysis appearance, urine clear blood in urine (hemoglobin) by dipstick negative Lab Report: CBC With Differential/Platelet, Comp. Metabolic Panel (14), ... - Chemistry aspartate aminotransferase (SGOT), serum 11 U/L 0-40 Lab Report: CBC With Differential/Platelet, Comp. Metabolic Panel (14), ... - Hematology red blood cell distribution width 14.3 % 12.3-15.4 Lab Report: Comp. Metabolic Panel (14), Urinalysis, Complete, Microscopi ... - Chemistry B-12, serum 393 pg/mL 211-946 Lab Report: COMPREHENSIVE METABOLIC PANEL - Chemistry globulins, serum, total 2.7 G/DL (CALC) g/dL 1.9-3.7 Lab Report: CBC With Differential/Platelet, Comp. Metabolic Panel (14), ... - Urinalysis urinalysis, microscopic examination See below: Lab Report: CBC With Differential/Platelet, Comp. Metabolic Panel (14), ... - Hematology leukocyte count, blood 11.7 X10E3/UL 10*3/mm3 3.4-10.8 Office Visit: Annual Planning Female RM#5-gabsvetlana - Urinalysis pH, urine, semiquantitative 5.0 Lab Report: CBC With Differential/Platelet, Comp. Metabolic Panel (14), ... - Chemistry potassium, serum 4.3 mmol/L 3.5-5.2 immature granulocytes, percentage of total cells, blood 0 % Not Estab. albumin, serum 4.3 g/dL 3.5-5.5 Lab Report: CBC With Differential/Platelet, Comp. Metabolic Panel (14), ... - Hematology lymphocyte count, blood, automated 3.8 X10E3/UL 10*3/mm3 0.7-3.1 hematocrit, blood 43.1 % 34.0-46.6 Lab Report: CBC With Differential/Platelet, Comp. Metabolic Panel (14), ... - Chemistry sodium, serum 139 mmol/L 134-144 Lab Report: Comp. Metabolic Panel (14), Urinalysis, Complete, Microscopi ... - Urinalysis urine culture Escherichia coli Lab Report: CBC With Differential/Platelet, Comp. Metabolic Panel (14), ... - Hematology neutrophils as percent of blood leukocytes 57 % Not Estab. Internal Correspondence: Pre-Visit Planning - Other List of providers caring for patient Dr. Lopez and Robby Lab Report: CBC With Differential/Platelet, Comp. Metabolic Panel (14), ... - Hematology basophils as percent of blood leukocytes 1 % Not Estab. Lab Report: CBC With Differential/Platelet, Comp. Metabolic Panel (14), ... - Chemistry specific gravity, body fluid >1.030 1.005-1.030 Lab Report: Comp. Metabolic Panel (14), Urinalysis, Complete, Microscopi ... - Chemistry folate, serum 8.2 ng/mL >3.0 Office Visit: Annual Planning Female RM#5-alejandrosvetlana - Urinalysis protein, urine, semiquantitative (dipstick) negative Lab Report: CBC With Differential/Platelet, Comp. Metabolic Panel (14), ... - Chemistry RBC, Urine 0-2 /hpf /[HPF] 0 - 2 carbon dioxide, venous blood 23 mmol/L 20-29 nitrate, urine Negative Negative triglyceride, serum, fasting 160 mg/dL 0-149 calcium, serum 9.6 mg/dL 8.7-10.2 microalbumin/creatinine ratio, urine 1027.2 MG/G CREAT ug/mg 0.0-30.0 alanine aminotransferase (SGPT), serum 13 U/L 0-32 Lab Report: CBC With Differential/Platelet, Comp. Metabolic Panel (14), ... - Hematology mean corpuscular hemoglobin, RBC 26.8 pg 26.6-33.0 Office Visit: Adult Followup - Gabler - Chemistry blood glucose, fasting 372 mg/dL Office Visit: Annual Planning Female RM#5-alejandroler - Urinalysis specific gravity, urine 1.025 Lab Report: CBC With Differential/Platelet, Comp. Metabolic Panel (14), ... - Urinalysis bacteria, urine microscopy None seen None seen/Few Lab Report: Duplicate report (lab results) - Chemistry lipase, serum 34 U/L [iU]/L 0-59 Lab Report: CBC With Differential/Platelet, Comp. Metabolic Panel (14), ... - Chemistry protein, total, serum 6.8 g/dL 6.0-8.5 alkaline phosphatase, serum 144 U/L 39-117 Lab Report: CBC With Differential/Platelet, Comp. Metabolic Panel (14), ... - Hematology hemoglobin, blood 13.7 g/dL 11.1-15.9 lymphocytes as percent of blood leukocytes 33 % Not Estab. Lab Report: CBC With Differential/Platelet, Comp. Metabolic Panel (14), ... - Chemistry hemoglobin A1C, blood, as % of total hemoglobin 11.3 % 4.8-5.6 Office Visit: Annual Planning Female RM#5-alejandroler - Urinalysis glucose, urine, semiquantitative 4+ Lab Report: CBC With Differential/Platelet, Comp. Metabolic Panel (14), ... - Genetics/fertility eGFR if 48 mL/min/1.73m2 >59 Lab Report: CBC With Differential/Platelet, Comp. Metabolic Panel (14), ... - Hematology basophil count, absolute 0.1 x10E3/uL 0.0-0.2 Lab Report: CBC With Differential/Platelet, Comp. Metabolic Panel (14), ... - Chemistry globulin, serum 2.5 1.5-4.5 Estimated Glomerular Filtration Rate (calc) 42 mL/min/1.73m2 >59 Lab Report: CBC With Differential/Platelet, Comp. Metabolic Panel (14), ... - Basic Occult Blood, urine 1+ Negative Lab Report: CBC With Differential/Platelet, Comp. Metabolic Panel (14), ... - Urinalysis microalbumin/total urine volume 2509.4 mg/L Not Estab. Lab Report: CBC With Differential/Platelet, Comp. Metabolic Panel (14), ... - Hematology eosinophils as percent of blood leukocytes 2 % Not Estab. Office Visit: Acute Visit rm 1 Initial endo visit DM2 - Chemistry blood glucose, random 178 mg/dL Office Visit: Annual Planning Female RM#5-gema - Urinalysis urobilinogen, urine, semiquantitative (dipstick) negative Lab Report: CBC With Differential/Platelet, Comp. Metabolic Panel (14), ... - Hematology monocyte count, blood, automated 0.8 X10E3/UL 10*3/uL 0.1-0.9 platelet count 350 X10E3/UL 10*3/mm3 150-379 Office Visit: Annual Planning Female RM#5-gema - Urinalysis ketones, urine, by test strip negative Encounters Date Encounter Provider Code Facility 23:05:39 [employer] Est Patient Detailed - 24082 Marsha Lopez MD CPT-00794 [facility] 12:05:28 CDT New Patient Detailed - 53140 Meagan Craft MD CPT-93450 [facility] 17:23:10 CDT Est Patient Detailed - 10014 Marsha Lopez MD CPT-44068 [facility] 07:14:46 CDT Est Patient Detailed - 87517 Marsha Lopez MD CPT-99338 [facility] 02:20:06 CDT Est Patient Comprehensive-25495 Marsha Lopez MD CPT-98105 [facility] 11:21:48 CDT Ofc Vst, Est Level IV Bernice Henry MD CPT-16803 [facility] 14:07:11 [employer] Ofc Vst, Est Level IV Bernice Henry MD CPT-21900 [facility] 01:07:54 [employer] Est Patient Detailed - 95256 Marsha Lopez MD CPT-65951 [facility] 15:08:33 [employer] Est Patient Exp Problem - 12726 Joesph Reyes MD CPT-59376 [facility] 13:17:04 CDT Est Patient Exp Problem - 63446 Joesph Reyes MD CPT-22091 [facility] 12:37:55 CDT Est Patient Exp Problem - 01711 Joesph Reyes MD CPT-39800 [facility] 22:35:31 CDT Est Patient Detailed - 60366 Marsha Lopez MD CPT-92191 [facility] 12:07:38 CDT Est Patient Detailed - 39588 Joesph Reyes MD CPT-99959 [facility] 22:50:56 CDT Est Patient Exp Problem - 96399 Marsha Lopez MD CPT-26778 [facility] 09:14:16 [employer] Est Patient Detailed - 56448 Marsha Lopez MD CPT-82553 [facility] 13:38:34 CDT Est Patient Exp Problem - 54481 Joesph Reyes MD CPT-25776 [facility] 14:11:35 CDT Est Patient Exp Problem - 56922 Marsha Lpoez MD CPT-83541 [facility] 13:04:10 CDT Est Patient Exp Problem - 34581 Joesph Reyes MD CPT-60106 [facility] 20:30:40 CDT Ofc Vst, Est Level IV Marsha Lopez MD CPT-23436 [facility] 10:38:31 CDT Est Patient Exp Problem - 77053 Marsha Lopez MD CPT-92617 [facility] 14:19:02 [employer] Est Patient Exp Problem - 22464 Joesph Reyes MD CPT-71248 [facility] 07:32:46 [employer] Est Patient Exp Problem - 15689 Marsha Lopez MD CPT-42413 [facility] 15:53:26 [employer] Est Patient Exp Problem - 48875 Marsha Lopez MD CPT-50231 [facility] 14:46:04 CDT Est Patient Exp Problem - 51672 Joesph Reyes MD CPT-73720 [facility] 16:08:31 CDT Est Patient Exp Problem - 27324 Marsha Lopez MD CPT-60889 [facility] 12:15:15 CDT Est Patient Exp Problem - 16724 Jackie Queen D.O. CPT-85716 [facility] 14:57:33 CDT Est Patient Exp Problem - 86274 Joesph Reyes MD CPT-92983 [facility] 15:36:26 CDT Est Patient Exp Problem - 10589 Joesph Reyes MD CPT-12783 [facility] 15:31:15 CDT Est Patient Detailed - 67342 Marsha Lopez MD CPT-27297 [facility] 12:21:00 CDT Est Patient Detailed - 23322 Marsha Lopez MD CPT-34917 [facility] 18:12:51 CDT Est Patient Exp Problem - 96193 Jackie Queen D.O. CPT-44171 [facility] 11:25:01 CDT Est Patient Exp Problem - 75935 Joesph Reyes MD CPT-43955 [facility] 18:54:03 CDT Est Patient Exp Problem - 86827 Marsha Lopez MD CPT-32038 [facility] 13:02:44 CDT Est Patient Detailed - 34000 Marsha Lopez MD CPT-52417 [facility] 15:58:20 CDT Est Patient Exp Problem - 41374 Joesph Reyes MD CPT-78573 [facility] 15:54:08 CDT Est Patient Detailed - 79604 Marsha Lopez MD CPT-02093 [facility] 11:24:59 CDT Est Patient Exp Problem - 80358 Joesph Reyes MD CPT-34440 [facility] 16:12:42 CDT Est Patient Detailed - 44466 Marsha Lopez MD CPT-17776 [facility] 14:40:29 CDT Est Patient Problem Focus - 35727 Mark Campos MD CPT-12273 [facility] 16:13:14 CDT Est Patient Detailed - 76793 Marsha Lopez MD CPT-57956 [facility] 09:57:10 CDT Est Patient Exp Problem - 35245 Joesph Reyes MD CPT-91784 [facility] 11:07:37 CDT New Patient Detailed - 43185 Marsha Lopez MD CPT-33584 [facility] 11:16:27 [employer] Est Patient Exp Problem - 16415 Joesph Reyes MD CPT-25166 [facility] Procedures Code Procedure Name Date Entry Date Standard Description CPT-22879 Psychotherapy 45 (38-52*) min - 76154 (with patient and/or family member) 10:41:46 [employer] CPT-61183 INFLUENZA VACCINE QUADRIVALENT 3 YRS PLUS IM 10:39:18 CDT CPT-74324 Psychotherapy 45 (38-52*) min - 14166 (with patient and/or family member) 00:18:11 CDT CPT-65260 [facility] 10:49:11 CDT CPT-70734 Psychotherapy 45 (38-52*) min - 66154 (with patient and/or family member) 15:56:43 CDT CPT-53895 Psychotherapy 45 (38-52*) min - 73430 (with patient and/or family member) 13:34:37 CDT CPT-48354 Psychotherapy 45 (38-52*) min - 24369 (with patient and/or family member) 18:00:07 CDT CPT-94695 Psychotherapy 45 (38-52*) min - 07541 (with patient and/or family member) 13:00:34 CDT CPT-61622 Psychotherapy 45 (38-52*) min - 96478 (with patient and/or family member) 13:45:08 CDT CPT-09056 Psychotherapy 45 (38-52*) min - 07164 (with patient and/or family member) 12:29:25 [employer] CPT-61639 Psychotherapy 45 (38-52*) min - 70575 (with patient and/or family member) 16:29:08 [employer] CPT-91605 Psychotherapy 45 (38-52*) min - 21723 (with patient and/or family member) 13:30:13 [employer] CPT-35062 Psychotherapy 45 (38-52*) min - 36552 (with patient and/or family member) 15:45:24 [employer] CPT-39795 Est Patient Well Exam (40 - 64 Yrs) - 35867 00:29:33 CDT CPT-92687 Urinalysis - Dip only - In House 12:10:22 CDT CPT-86118 Psychotherapy 45 (38-52*) min - 35588 (with patient and/or family member) 15:54:38 CDT CPT-31384 Psychotherapy 45 (38-52*) min - 64157 (with patient and/or family member) 13:15:02 CDT CPT-12030 INFLUENZA VACCINE QUADRIVALENT 3 YRS PLUS IM 13:11:18 CDT CPT-20211 Admin of Vaccine - Injection - 1 13:11:18 CDT CPT-29228 Psychotherapy 45 (38-52*) min - 53661 (with patient and/or family member) 12:53:04 CDT CPT-95943 Psychotherapy 45 (38-52*) min - 32141 (with patient and/or family member) 17:28:55 CDT CPT-41192 Psychotherapy 45 (38-52*) min - 62501 (with patient and/or family member) 13:34:16 CDT CPT-92214 Psychotherapy 45 (38-52*) min - 03319 (with patient and/or family member) 13:09:21 CDT CPT-86912 Psychotherapy 45 (38-52*) min - 54298 (with patient and/or family member) 13:47:51 CDT CPT-40065 Psychotherapy 45 (38-52*) min - 60006 (with patient and/or family member) 13:39:35 CDT CPT-HE001 Health Education/Supportive Counseling 14:53:59 CDT CPT-99705 Psychotherapy 45 (38-52*) min - 05250 (with patient and/or family member) 15:42:06 [employer] CPT-94367 Nutritional Counseling 16:15:23 [employer] CPT-17407 Psychotherapy 45 (38-52*) min - 72738 (with patient and/or family member) 13:23:42 [employer] CPT-28587 Psychotherapy 45 (38-52*) min - 55877 (with patient and/or family member) 13:16:34 [employer] CPT-01737 Psychotherapy 45 (38-52*) min - 08788 (with patient and/or family member) 18:43:57 [employer] CPT-19575 Psychotherapy 45 (38-52*) min - 66857 (with patient and/or family member) 14:49:25 CDT CPT-80174 Psychotherapy 45 (38-52*) min - 02805 (with patient and/or family member) 14:56:02 CDT CPT-53616 Psychotherapy 45 (38-52*) min - 27348 (with patient and/or family member) 17:13:53 CDT CPT-01173 Psychotherapy 45 (38-52*) min - 45831 (with patient and/or family member) 21:44:15 CDT CPT-22375 Psychotherapy 45 (38-52*) min - 77467 (with patient and/or family member) 17:37:02 CDT CPT-29340 Psychotherapy 45 (38-52*) min - 12073 (with patient and/or family member) 17:49:41 CDT CPT-44803 Est Patient Intermediate Opt - 43195 11:20:33 CDT CPT-21131 New Patient Intermediate Opth - 16743 10:39:38 CDT CPT-10917 Psychotherapy 45 (38-52*) min - 38311 (with patient and/or family member) 14:06:21 CDT CPT-67787 Psychotherapy 45 (38-52*) min - 98121 (with patient and/or family member) 14:15:35 CDT CPT-63130 Psychotherapy 45 (38-52*) min - 12858 (with patient and/or family member) 14:00:18 CDT CPT-63208 Psychotherapy 45 (38-52*) min - 50852 (with patient and/or family member) 13:50:59 CDT CPT-95288 Psychotherapy 45 (38-52*) min - 29836 (with patient and/or family member) 13:41:44 CDT CPT-93433 Psychotherapy 45 (38-52*) min - 42230 (with patient and/or family member) 12:53:44 CDT CPT-52903 FUNDUS PHOTOGRAPHY W/INTERPRETATION & REPORT 15:42:28 [employer] CPT-38094 Psychotherapy 45 (38-52*) min - 11741 (with patient and/or family member) 14:00:32 [employer] CPT-59952 Psychotherapy 45 (38-52*) min - 28524 (with patient and/or family member) 19:18:05 [employer] CPT-73331 Psychotherapy 45 (38-52*) min - 74381 (with patient and/or family member) 11:51:08 [employer] CPT-37141 Est Patient Intermediate Opth - 99348 11:52:44 [employer] CPT-61743 Psychotherapy 45 (38-52*) min - 23090 (with patient and/or family member) 12:09:59 [employer] CPT-23519 Psychotherapy 45 (38-52*) min - 12601 (with patient and/or family member) 11:26:18 [employer] CPT-92879 Psychotherapy 45 (38-52*) min - 56819 (with patient and/or family member) 13:16:36 [employer] CPT-91965 Psychotherapy 45 (38-52*) min - 90145 (with patient and/or family member) 11:32:22 CDT CPT-33943 Psychotherapy 45 (38-52*) min - 51474 (with patient and/or family member) 11:55:10 CDT CPT-90571 Psychotherapy 45 (38-52*) min - 15329 (with patient and/or family member) 11:37:37 CDT CPT-69240 OSTEOPATHIC MANIPULATIVE [place] 3-4 BODY [employer]IONS 18:12:51 CDT CPT-05182 Psychotherapy 45 (38-52*) min - 29934 (with patient and/or family member) 12:16:31 CDT CPT-04204 Psychotherapy 45 (38-52*) min - 78332 (with patient and/or family member) 12:57:37 CDT CPT-61395 Psychotherapy 45 (38-52*) min - 78275 (with patient and/or family member) 11:12:33 CDT CPT-30645 INFLUENZA VAC 4 VALENT PRSRV FREE 3 YRS PLUS IM 11:07:40 CDT CPT-10357 Psychotherapy 45 (38-52*) min - 96250 (with patient and/or family member) 11:37:23 CDT CPT-47122 Psychotherapy 45 (38-52*) min - 00642 (with patient and/or family member) 11:31:19 CDT CPT-97494 Psychotherapy 45 (38-52*) min - 65976 (with patient and/or family member) 15:52:03 CDT CPT-22146 Psychotherapy 45 (38-52*) min - 30126 (with patient and/or family member) 15:29:07 CDT CPT-76534 Psychotherapy 45 (38-52*) min - 25033 (with patient and/or family member) 20:36:13 CDT CPT-61438 Psychotherapy 45 (38-52*) min - 50282 (with patient and/or family member) 19:34:14 CDT CPT-07526 Psychotherapy 45 (38-52*) min - 99033 (with patient and/or family member) 15:15:54 CDT CPT-05710 Psychotherapy 45 (38-52*) min - 10560 (with patient and/or family member) 15:22:10 CDT CPT-81999 Psychotherapy 45 (38-52*) min - 54897 (with patient and/or family member) 15:26:29 CDT CPT-16372 Psychotherapy 45 (38-52*) min - 23711 (with patient and/or family member) 13:30:31 CDT CPT-51834 EKG - Tracing Only 11:37:35 CDT CPT-57585 Psychotherapy 45 (38-52*) min - 37580 (with patient and/or family member) 12:18:10 CDT CPT-18804 Biopsy, skin/mucous membrane 13:07:36 CDT CPT-31202 Psychotherapy 45 (38-52*) min - 94029 (with patient and/or family member) 11:24:36 CDT CPT-10034 Glucose Stick 15:54:43 CDT CPT-92266 Psychotherapy 45 (38-52*) min - 84156 (with patient and/or family member) 18:02:54 CDT CPT-38343 Psychotherapy 45 (38-52*) min - 40963 (with patient and/or family member) 11:11:57 CDT CPT-77974 Psychotherapy 45 (38-52*) min - 79353 (with patient and/or family member) 18:26:30 CDT CPT-99164 Psychotherapy 45 (38-52*) min - 03773 (with patient and/or family member) 15:52:07 CDT CPT-74739 Psychotherapy 45 (38-52*) min - 55643 (with patient and/or family member) 11:25:24 [employer] CPT-59813 Psychotherapy 45 (38-52*) min - 01781 (with patient and/or family member) 11:30:14 [employer] CPT-55577 Psychotherapy 45 (38-52*) min - 60696 (with patient and/or family member) 18:22:46 [employer] CPT-07651 Psychotherapy 45 (38-52*) min - 75600 (with patient and/or family member) 14:32:21 [employer] CPT-55732 Psychotherapy 45 (38-52*) min - 20893 (with patient and/or family member) 12:12:00 [employer] CPT-61800 Diagnostic evaluation with medical - 04548 11:12:34 [employer] CPT-35275 Diagnostic evaluation (no medical) - 97349 15:36:51 [employer]
[2018-01-27 10:00] VITALS: BP 146/92
--- NOTE | 2018-01-27 11:39 | Operative Report ---
DATE OF PROCEDURE: January 27, 2018 PREOPERATIVE DIAGNOSES: Biopsy-proven basal cell carcinoma involvin. The left glabellar region. 2. Left upper eyelid. POSTOPERATIVE DIAGNOSES: Biopsy-proven basal cell carcinoma involvin. The left glabellar region. 2. Left upper eyelid. PROCEDURES PERFORMED 1. Excision of malignant neoplasm, left glabellar region. 2. Excision of malignant neoplasm, left upper eyelid. 3. Frozen section control of margins. 4. Flap closure of glabellar region. 5. Flap closure of the left upper eyelid. ANESTHESIA: MAC/local. HISTORY: The patient is a 57-year-old female who has an extensive previous history with malignant neoplasms of the skin and soft tissues of the face and forehead. She had the entire forehead replaced by a split-thickness skin graft many years ago for an extensive basal cell carcinoma. The patient presented with a lesion at the medial aspect of the left eyebrow extending onto the left upper eyelid. This was biopsied by the public health inspector and found to be an invasive basal cell carcinoma. Risks, benefits and alternatives of treatment were discussed with the patient, and it was felt that the best course of action would be to excise the lesion in the OR and have frozen section control of the margins. Once the margins were clear, then closure could be anticipated. Patient is in agreement with this. DETAILS OF PROCEDURE: Patient was marked preoperatively in the holding area. She was brought to the operating theater. After the induction of adequate IV sedation, she was prepped and draped in a supine position. A time out was performed. The lesion was marked out, and 3 to 4 mm margins were marked out because of the location of the lesion and the encroachment on the left upper eyelid. There were what appeared to be small satellite lesions adjacent to the primary lesion, and these were included in the initial resection. The area was then infiltrated with 1% Xylocaine with epinephrine. Approximately 4 to 5 mL was used. After waiting an appropriate amount of time for maximum vasoconstrictive effect, the incision was made through the skin and subcutaneous tissues. Bleeding was controlled using electrocautery. A full-thickness excision of the neoplasm was performed, and then the specimen was oriented with sutures. It was sent to the Department of Pathology for frozen section control of the margins. The initial frozen section report revealed that there was incomplete excision from the 12 o'clock to the 3 o'clock position. For this reason, additional 3 to 4 mm of tissue was taken. After performing this maneuver and orienting the specimen, it was sent for frozen section control and it was reported that the margins were negative. At this point, the flap closures were designed. Just above the eyebrow, the entire forehead had been replaced with a skin graft, and there was no way to use this tissue and mobilize it, so the tissues had to be mobilized from the right glabellar region and the dorsal aspect of the nose. The flaps were designed and marked out. They were then incised and then elevated in the deep subcutaneous plane. The flaps were then transposed into the defect, and undermining was performed and so that the flaps were transposed with little or no tension. At this point, the wound was irrigated with bacteriostatic saline and closed in layers utilizing 4-0 Vicryl in interrupted fashion to approximate the deep tissues and then 4-0 nylon in interrupted horizontal mattress fashion to approximate the superficial tissues. Bactroban ointment and a sterile dressing were applied. The estimated blood loss for the procedure was 10 to 15 mL. The patient tolerated the procedure well and was brought to the recovery room in satisfactory condition and discharged with a postoperative instruction sheet as well as a followup appointment. ADDENDUM: The excised diameter of the neoplasm after the 2nd frozen section measured approximately 3 cm x 1.5 cm. The flap necessitated the mobilization of tissue from the glabellar area and the left upper eyelid, each measuring approximately 8 to 10 cm squared. Job#: [id number]
== END | disposition home or self-care (01) ==
LOC: OR 06:27
PROVIDERS: ATTEND Plastic Surgery
DX: C44.319 Basal cell carcinoma of skin of other parts of face (principal); C44.1191 Basal cell carcinoma of skin of left upper eyelid, including canthus; E11.9 Type 2 diabetes mellitus without complications; I25.10 Atherosclerotic heart disease of native coronary artery without angina pectoris; J44.9 Chronic obstructive pulmonary disease, unspecified; G47.33 Obstructive sleep apnea (adult) (pediatric); I25.2 Old myocardial infarction; I11.0 Hypertensive heart disease with heart failure; I50.9 Heart failure, unspecified; K58.9 Irritable bowel syndrome, unspecified; F32.9 Major depressive disorder, single episode, unspecified; F41.9 Anxiety disorder, unspecified; Z88.6 Allergy status to analgesic agent; Z88.0 Allergy status to penicillin; Z01.810 Encounter for preprocedural cardiovascular examination; Z01.812 Encounter for preprocedural laboratory examination; Z01.818 Encounter for other preprocedural examination; Z79.02 Long term (current) use of antithrombotics/antiplatelets; Z79.82 Long term (current) use of aspirin; Z79.4 Long term (current) use of insulin; Z95.5 Presence of coronary angioplasty implant and graft
CPT/HCPCS: 14060; 36415 ×2; 71046; 80048; 82948; 85025; 88305; 88331; 88332; 93005; J0360; J2250; J2405; J2001